=== PATIENT | female | born 1955 | race American Indian/Alaskan Native ===

== ENCOUNTER 2017-01-07 09:00 | Outpatient (CLI) | payer OTHER ==
--- NOTE | 2017-01-07 12:37 | Mammography Report ---
BILATERAL MAMMOGRAM with CAD: HISTORY: Cancer screening. Comparison study is dated December 19, 2015. FINDINGS: There are scattered fibroglandular densities (approximately 25%-50% glandular). No mass, distortion, suspicious calcification, or skin change is seen. IMPRESSION: Negative mammogram. There is no mammographic evidence of malignancy. RECOMMENDATION: Follow-up per ACS guidelines. BI-RADS CATEGORY: 1 = Negative ACR BI-RADS MAMMOGRAPHIC CODES: 0 = Needs additional imaging evaluation; 1 = Negative; 2 = Benign; 3 = Probably benign; 4 = Suspicious; 5 = Malignant; 6 = Known biopsy-proven malignancy COMMENT: 1. Dense breast tissue, i.e., adenosis, fibrocystic changes, etc., may obscure an underlying neoplasm. 2. Approximately 10% of cancers are not detected with mammography. 3. A negative mammography report should not delay biopsy if a clinically suspicious mass is present. COMMENT: Patient follow-up letters are generated in [employer].
== END 2017-01-07 09:01 | disposition home or self-care (01) ==
LOC: MAMMO 09:00
PROVIDERS: ATTEND Internal Medicine
DX: Z12.31 Encounter for screening mammogram for malignant neoplasm of breast (principal)
CPT/HCPCS: 77067; G0202

== ENCOUNTER 2019-09-13 08:45 | Outpatient (CLI) | payer OTHER ==
--- NOTE | 2019-09-13 12:36 | Mammography Report ---
DIGITAL SCREENING MAMMOGRAM WITH CAD, 09/13/2019 INDICATION: Routine screening mammography. TECHNIQUE: Digital bilateral 2D mammography was obtained in the craniocaudal and mediolateral obliq ue projections. This examination was interpreted with the benefit of Computer-Aided Detection analysi s. COMPARISON: 03/03/2018. FINDINGS: Breast Density: There are scattered areas of fibroglandular density. There is no evidence of dominant mass, suspicious calcifications or architectural distortion in eithe r breast. IMPRESSION: Follow up recommendation: Routine yearly BI-RADS Category 1: Negative. A "normal" or negative report should not discourage follow up or biopsy of a clinically significant f inding. A written summary of these findings will be mailed to the patient. The patient will be entered into a mammography reporting system which will generate a reminder letter for the patient's next appointmen t at the appropriate interval. The [employer] recommends yearly mammograms starting at age 40 and continuing as l shweta as a woman is in good health. Breast MRI is recommended for women with an approximate 20-25% or greater lifetime risk of breast cancer, including women with a strong family history of breast or ova michael cancer or who have been treated for Hodgkin's disease. Signer Name: Pito Polanco MD Signed: 09/13/2019 12:31 PM Workstation Name: [id number]
== END 2019-09-13 08:46 | disposition home or self-care (01) ==
LOC: MAMMO 08:45
PROVIDERS: ATTEND Internal Medicine
DX: Z12.31 Encounter for screening mammogram for malignant neoplasm of breast (principal)
CPT/HCPCS: 77067

== ENCOUNTER 2021-02-05 09:35 | Emergency (ER) | payer MEDICARE, OTHER ==
[2021-02-05] MEDS ORDERED: KETOROLAC 30 MG/1 ML INJ IM ONE (10:09)
--- NOTE | 2021-02-05 10:13 | Emergency Department Report ---
ED Back Pain/Injury HPI - General Chief Complaint: Extremity Problem,Nontraumatic Stated Complaint: RT HIP/LEG PAIN Time Seen by Provider: 02/05/21 09:59 Source: patient Limitations: No Limitations - History of Present Illness Initial Comments: 64-year-old -[place] female presents to the emergency room complaining of right hip pain that radiates to her feet. Patient states is been going on for about 3 days since Friday. Patient denies any trauma denies states she has been taking Tylenol which she reports does not help. She does have a primary care provider but did not follow-up. Onset/Timin -: days(s) Similar Symptoms Previously: No Severity scale (0 -10): 5 Quality: burning, sharp Consistency: intermittent Improves With: none Worsens With: walking Associated Symptoms: denies other symptoms. denies: numbness, difficulty walking, nausea/vomiting - Related Data Previous Rx's Medication Instructions Recorded Last Taken Type Diclofenac Sodium [Voltaren 20 gm TP Q8H PRN #20 gel..gram. 02/05/21 Unknown Rx Arthritis Pain] Ibuprofen [Motrin 800 MG tab] 800 mg PO Q8HR PRN #30 tablet 02/05/21 Unknown Rx Allergies Allergy/AdvReac Type Severity Reaction Status Date / Time No Known Allergies Allergy Unverified 12/19/15 10:38 ED Review of Systems ROS: Stated complaint: RT HIP/LEG PAIN Other details as noted in HPI Comment: All other systems reviewed and negative ED Past Medical Hx - Past Medical History Previous Medical History?: Yes Hx Hypertension: Yes Hx Diabetes: Yes - Medications Home Medications: Home Medications Medication Instructions Recorded Confirmed Last Taken Type Diclofenac Sodium [Voltaren 20 gm TP Q8H PRN #20 gel..gram. 02/05/21 Unknown Rx Arthritis Pain] Ibuprofen [Motrin 800 MG tab] 800 mg PO Q8HR PRN #30 tablet 02/05/21 Unknown Rx ED Physical Exam - General Limitations: No Limitations General appearance: alert, in no apparent distress - Head Head exam: Present: atraumatic, normocephalic - Eye Eye exam: Present: normal appearance - ENT ENT exam: Present: mucous membranes moist - Neck Neck exam: Present: normal inspection, full ROM - Respiratory Respiratory exam: Absent: respiratory distress, chest wall tenderness, accessory muscle use - Cardiovascular Cardiovascular Exam: Present: regular rate - Extremities Exam Extremities exam: Present: normal inspection, full ROM - Expanded Lower Extremity Exam Right Hip exam: Present: normal inspection Upper Leg exam: Present: normal inspection Knee exam: Present: normal inspection Lower Leg exam: Present: normal inspection Foot/Toe exam: Present: normal inspection Neuro vascular tendon exam: Present: no vascular compromise - Back Exam Back exam: Present: normal inspection, full ROM - Neurological Exam Neurological exam: Present: alert, oriented X3, normal gait - Psychiatric Psychiatric exam: Present: normal affect, normal mood - Skin Skin exam: Present: warm, dry, intact, normal color. Absent: rash ED Course Vital Signs 02/05/21 02/05/21 09:43 10:50 Temperature 98.2 F Pulse Rate 84 80 Respiratory 20 Rate Blood Pressure 156/66 Blood Pressure 118/74 [Left] O2 Sat by Pulse 97 Oximetry Critical care attestation.: If time is entered above; I have spent that time in minutes in the direct care of this critically ill patient, excluding procedure time. ED Disposition Clinical Impression: Sciatica Disposition: 01 HOME / SELF CARE / HOMELESS Is pt being admited?: No Does the pt Need Aspirin: No Condition: Stable Instructions: Sciatica, [id number] Additional Instructions: Take medication as prescribed. Use Voltaren gel topical to right side. Prescriptions: Ibuprofen [Motrin 800 MG tab] 800 mg PO Q8HR PRN #30 tablet PRN Reason: Pain , Severe (7-10) Diclofenac Sodium [Voltaren Arthritis Pain] 20 gm TP Q8H PRN #20 gel..gram. PRN Reason: Pain , Severe (7-10) Referrals: JETT ALEJANDRO II, MD [Staff Physician] - 3-5 Days Time of Disposition: 10:12
[2021-02-05 10:52] VITALS: BP 118/74
== END 2021-02-05 10:49 | disposition home or self-care (01) ==
LOC: ED 09:35
DX: M54.31 Sciatica, right side (principal); M25.551 Pain in right hip; I10 Essential (primary) hypertension; E11.9 Type 2 diabetes mellitus without complications; Z79.899 Other long term (current) drug therapy
CPT/HCPCS: 96372; 99281; J1885

== ENCOUNTER 2021-09-03 13:05 | Outpatient (CLI) | payer OTHER ==
--- NOTE | 2021-09-05 08:59 | Mammography Report ---
DIGITAL SCREENING MAMMOGRAM WITH CAD, 09/03/2021 CLINICAL INFORMATION / INDICATION: Routine screening mammography. Z12.31 TECHNIQUE: Digital bilateral 2D mammography was obtained in the craniocaudal and mediolateral obliqu e projections. This examination was interpreted with the benefit of Computer-Aided Detection analysis . COMPARISON: 09/13/2019. FINDINGS: Breast Density: There are scattered areas of fibroglandular density. No dominant mass, suspicious calcifications, or architectural distortion in either breast. IMPRESSION: No mammographic evidence of malignancy. Follow up recommendation: Routine yearly screening mammogram. BI-RADS Category 1: NEGATIVE A "normal" or negative report should not discourage follow up or biopsy of a clinically significant f inding. A written summary of these findings will be mailed to the patient. The patient will be entered into a mammography reporting system which will generate a reminder letter for the patient's next appointmen t at the appropriate interval. The [employer] recommends yearly mammograms starting at age 40 and continuing as l shweta as a woman is in good health. Breast MRI is recommended for women with an approximate 20-25% or greater lifetime risk of breast cancer, including women with a strong family history of breast or ova michael cancer or who have been treated for Hodgkin's disease. Signer Name: Pito Polanco MD Signed: 09/05/2021 8:54 AM Workstation Name: [id number]
== END 2021-09-03 13:06 | disposition home or self-care (01) ==
LOC: MAMMO 13:05
PROVIDERS: ATTEND Internal Medicine
DX: Z12.31 Encounter for screening mammogram for malignant neoplasm of breast (principal)
CPT/HCPCS: 77067